=== PATIENT | female | born 1950 | race Caucasian/White ===

== ENCOUNTER 2017-05-31 14:58 | Emergency (ER) | payer MEDICARE, MEDICAID ==
[~2017-05-31] VITALS: Ht 144.8 cm; Wt 75.8 kg
[~2017-05-31 14:58] MED LIST: ACYC800T99 PO; ASPI81TA94 PO; AZI250 PO; BLOO-1511 MC; CHOL200074 PO; CIP500 GT; CYCL10TA29 PO; GLIP5POW MC; GLY5 PO; HCTZ25 PO; HYDR-3250 GT; HYDR-385 PO; HYDR-4309 PO; IBU800 PO; LOR10/500 PO; LOR5 PO; LOR5/325 PO; METF-410 PO; METR-159 PO; METR250 GT; NITR-105 PO; NO MEDS; ONDA4TAB PO; SULF-198 PO; blood pressure med
[2017-05-31 15:05] VITALS: BP 204/99
--- NOTE | 2017-05-31 15:10 | ER Report ---
History and Physical Time Seen By MD: 15:07 HPI/ROS CHIEF COMPLAINT: Back pain HISTORY OF PRESENT ILLNESS: This is a 66-year-old female who presents to the emergency department with left back pain. Patient states that this has been an reoccurring pain for roughly 2-3 months, has been seen in the emergency departments after a fall was told it was from her fall however that pain is still persistent. The patient states the last several days the area has begun to burn, feels like it's on fire, in a very localized area to the back, at the T7-T8 dermatome line, her clothing irritates the area. Patient denies any other symptoms no nausea, vomiting, diarrhea, aches, chills or visual changes. Patient states that she did notice there were one or 2 little blisters that are present now. No oozing or crusting. REVIEW OF SYSTEMS: Constitutional: No fever, no chills. Eyes: No discharge. ENT: No sore throat. Cardiovascular: No chest pain, no palpitations. Respiratory: No cough, no shortness of breath. Gastrointestinal: No abdominal pain, no vomiting. Genitourinary: No hematuria. Musculoskeletal: As above. Skin: As above. Neurological: No headache. Allergies: Coded Allergies: No Known Drug Allergies (Verified , 09/24/16) Home Meds Active Scripts Acyclovir (ACYCLOVIR) 800 Mg Tablet, 800 MG PO 5XD for 7 Days, #35 TAB take with food Prov:DAVIE MOREJON MEDIA PLANNER-BC 05/31/17 Blood Sugar Diagnostic (GLUCOSE TEST STRIP) 1 Each Strip, 1 EACH MC BID for Diabetes for 50 Days, #100 STRIP 6 Refills Prov:MARÍA MARION MD 10/06/16 Cholecalciferol (Vitamin D3) (VITAMIN D-3) 2,000 Unit Capsule, 1 CAP PO DAILY, # 100 CAPSULE 3 Refills Prov:MARÍA MARION MD 07/29/16 Aspirin (ASPIRIN) 81 Mg Tab.chew, 81 MG PO QDAY, #90 TAB.CHEW 3 Refills Prov:MARÍA MARION MD 07/29/16 Glyburide (GLYBURIDE) 5 Mg Tab, 5 MG PO QDAY for 90 Days, TAB 3 Refills Prov:MARÍA MARION MD 07/29/16 Past Medical/Surgical History Patient has a past medical and surgical history of type II diabetes. Reviewed Nurses Notes: Yes Hx Smoking: No Smoking Status: Never Smoker Exposure to Second Hand Smoke?: No Hx Substance Use Disorder: No Hx Alcohol Use: Yes Constitutional Vital Sign - Last 24 Hours 05/31/17 15:05 Temp 98.7 Pulse 85 Resp 20 B/P (MAP) 204/99 Pulse Ox 96 O2 Delivery Room Air Physical Exam General Appearance: The patient is alert, has no immediate need for airway protection and no signs of toxicity. Eyes: Pupils equal and round no pallor or injection. ENT, Mouth: Mucous membranes are moist. Respiratory: There are no retractions, lungs are clear to auscultation. Cardiovascular: Regular rate and rhythm, no murmurs, clicks or rubs. Gastrointestinal: Abdomen is soft and non tender, no masses, bowel sounds normal. Neurological: Alert and oriented 4. Moving all extremities. Following all commands. No focal neuro deficits. Skin: Warm and dry, no rashes. 2 small blister appearing spots along the posterior T7-T8 dermatome line. No discharge. Painful with light touch. Musculoskeletal: Neck is supple non tender. Extremities are nontender, nonswollen and have full range of motion. DIFFERENTIAL DIAGNOSIS: After history and physical exam differential diagnosis was considered for contusion, shingles, viral rash, chronic back pain. Medical Decision Making ED Course/Re-evaluation ED Course The patient was admitted to room. History and physical were obtained. Differential diagnoses were considered. Upon evaluation of the patient and upon discussing the symptoms with the patient and no injury go ahead and treat the patient's for shingles. The patient is in agreement with this. A prescription for acyclovir was sent to the patient's pharmacy the patient was also encouraged to establish a primary care provider here in town and follow-up in 7- 14 days. Patient was also encouraged to return to the ED for worsening symptoms. The patient had no other questions or concerns and was discharged home. Decision to Disposition Date: May 31, 2017 Decision to Disposition Time: 15:30 Depart Departure Latest Vital Signs Vital Signs Date Time Temp Pulse Resp B/P (MAP) Pulse Ox O2 Delivery O2 Flow Rate FiO2 05/31/17 15:05 98.7 85 20 204/99 96 Room Air Impression: Primary Impression: Shingles Condition: Improved Disposition: HOME OR SELF-CARE Referrals: JONE SALAZAR MD (PCP) New Scripts Acyclovir (ACYCLOVIR) 800 Mg Tablet 800 MG PO 5XD for 7 Days, #35 TAB take with food Prov: DAVIE MOREJON 05/31/17 Patient Instructions: Shingles (ED) Additional Instructions: Drink plenty of water. Get plenty of rest. Take the medication as indicated, with food, 5 times a day for 5 days. Please establish with a provider here in town for follow up within 7-14 days. May return to the ED for worsening symptoms. MD Consult Note: CATI Hall Problem Qualifiers Primary Impression: Shingles Herpes zoster complications: without complications Qualified Codes: B02.9 - Zoster without complications DAVIE MOREJON May 31, 2017 15:10
[2017-05-31] MEDS ORDERED: ACYC800T99 PO (15:35)
== END 2017-05-31 15:43 | disposition home or self-care (01) ==
LOC: ER 15:05
DX: B02.9 Zoster without complications (principal)
CPT/HCPCS: 99282

== ENCOUNTER 2017-06-08 19:51 | Emergency (ER) | payer MEDICARE, MEDICAID ==
[~2017-06-08] VITALS: Ht 144.8 cm; Wt 75.8 kg
[~2017-06-08 19:51] MED LIST changes: +LIDO700A19 TOP; +PRED20TA6 PO
[2017-06-08] MEDS ORDERED: [UNRECOGNIZED DRUG - CODE] TP (20:06)
--- NOTE | 2017-06-08 20:11 | ER Report ---
History and Physical Time Seen By MD: 20:15 Hx. of Stated Complaint: pt dx with shingles last week in ER, given capzasin cream by primary provider yesterday, rubbed it on first time tonight, burning and itching back after application, L side redness and irritation HPI/ROS CHIEF COMPLAINT: Reaction to topical capsaicin cream HISTORY OF PRESENT ILLNESS: Patient is a 66-year-old female who was diagnosed with herpes zoster roughly 1 week ago. Patient was started on acyclovir the vesicular rash has improved although she was still having some neurologic discomfort to the affected area. She was prescribed capsaicin cream to apply topically. After this was applied patient developed redness to the area along with some irritation and burning. No respiratory symptoms were noted. REVIEW OF SYSTEMS: Respiratory: No cough, no dyspnea. Cardiovascular: No chest pain, no palpitations. Gastrointestinal: No vomiting, no abdominal pain. Musculoskeletal: No back pain. Allergies: Coded Allergies: No Known Drug Allergies (Verified , 09/24/16) Home Meds Active Scripts Prednisone (PREDNISONE) 20 Mg Tablet, 1 TAB PO BID for 5 Days, #10 TAB 0 Refills Prov:SABAS RIOS DNP, DAMAGE ASSESSOR-BC 06/07/17 Blood Sugar Diagnostic (GLUCOSE TEST STRIP) 1 Each Strip, 1 EACH MC BID for Diabetes for 50 Days, #100 STRIP 6 Refills Prov:MARÍA MARION MD 10/06/16 Cholecalciferol (Vitamin D3) (VITAMIN D-3) 2,000 Unit Capsule, 1 CAP PO DAILY, # 100 CAPSULE 3 Refills Prov:MARÍA MARION MD 07/29/16 Aspirin (ASPIRIN) 81 Mg Tab.chew, 81 MG PO QDAY, #90 TAB.CHEW 3 Refills Prov:MARÍA MARION MD 07/29/16 Glyburide (GLYBURIDE) 5 Mg Tab, 5 MG PO QDAY for 90 Days, TAB 3 Refills Prov:MARÍA MARION MD 07/29/16 Reported Medications Capsaicin/Menthol (CAPZASIN QUICK RELIEF GEL) 42.5 Gm Gel.w.appl, 42.5 GM TP 06/08/17 Discontinued Scripts Lidocaine (Lidocaine) 5 % Adh..patch, 1 PATCH TOP DAILY for 30 Days, #30 PATCH 0 Refills May apply 1/2-1 patch for up to 12h/day. Cover most painful areas. May cut to size. Prov:SABAS RIOS Anthony DNP, DAMAGE ASSESSOR-BC 06/07/17 Acyclovir (ACYCLOVIR) 800 Mg Tablet, 800 MG PO 5XD for 7 Days, #35 TAB take with food Prov:DAVIE MOREJON DAMAGE ASSESSOR-BC 05/31/17 Hx Smoking: No Smoking Status: Never Smoker Exposure to Second Hand Smoke?: No Hx Substance Use Disorder: No Hx Alcohol Use: Yes Constitutional Vital Sign - Last 24 Hours 06/08/17 19:59 Temp 98.1 Pulse 75 Resp 18 B/P (MAP) 203/122 Pulse Ox 96 O2 Delivery Room Air Physical Exam General Appearance: The patient is alert, has no immediate need for airway protection and no current signs of toxicity. Respiratory: Chest is non tender, lungs are clear to auscultation. Cardiac: regular rate and rhythm Gastrointestinal: Abdomen is soft and non tender, no masses, bowel sounds normal. Musculoskeletal: Neck: Neck is supple and non tender. Extremities have full range of motion and are non tender. Skin: Patient with rash to the left lower flank. No vesicular lesions. Medical Decision Making ED Course/Re-evaluation ED Course 06/08/2017 8:17:33 pm Plan at this time will be to try topical steroids. We'll have patient discontinue the capsacin cream 06/08/2017 8:56:59 pm Rash irritation and redness have improved after application of Kenalog cream. Patient will be discharged with tubes she received in the emergency department she was given instructions on how to use this medication over the next week. Decision to Disposition Date: Jun 08, 2017 Decision to Disposition Time: 20:36 Depart Departure Latest Vital Signs Vital Signs Date Time Temp Pulse Resp B/P (MAP) Pulse Ox O2 Delivery O2 Flow Rate FiO2 06/08/17 19:59 98.1 75 18 203/122 96 Room Air Impression: Primary Impression: Adverse drug effect Condition: Improved Disposition: HOME OR SELF-CARE Referrals: JONE SALAZAR MD (PCP) 2 Days for recheck of rash Patient Instructions: Adverse Drug Reaction (ED) Additional Instructions: Discontinue use of the capsacin topical cream Continue your other prescribed medications as directed Use the Kenalog topical steroid cream given to you in the emergency department twice per day for the next 7 days to the affected area as needed for rash or irritation Problem Qualifiers Primary Impression: Adverse drug effect Encounter type: initial encounter Qualified Codes: T88.7XXA - Unspecified adverse effect of drug or medicament, initial encounter FREDERICK GARCIA MD Jun 08, 2017 20:11
[2017-06-08] MEDS ORDERED: TRIAMCINOLONE ACE 0.1% CR 15GM TP ONE (20:20)
[2017-06-08 21:07] VITALS: BP 174/96
== END 2017-06-08 21:11 | disposition home or self-care (01) ==
LOC: ER 20:03
DX: T88.7XXA Unspecified adverse effect of drug or medicament, initial encounter (principal)
CPT/HCPCS: 99281; A9270

== ENCOUNTER 2017-08-23 18:45 | Emergency (ER) | payer MEDICARE, MEDICAID ==
[~2017-08-23 18:45] MED LIST changes: +[UNRECOGNIZED DRUG - CODE] TP
--- NOTE | 2017-08-23 18:54 | ER Report ---
History and Physical Time Seen By MD: 18:53 HPI/ROS CHIEF COMPLAINT: Fall, right knee pain, left ankle pain HISTORY OF PRESENT ILLNESS: 67-year-old female, type II diabetic with chronic back pain secondary to postherpetic neuralgia. She fell 4 days ago in the grocery store. She describes a twisting motion to her right knee. She went down on her right knee. She states she is unable to bend her knee more than 30 . She notes that she's been having throbbing pain, which is been keeping her awake at night. She has tried Aleve earlier today with some improvement of her pain. Patient also notes some mild pain in her left ankle. She states she has chronic problems with her left ankle. She also notes a twisting motion of her back causing more pain. Patient denies head impact, neck pain, chest pain, shortness of breath. REVIEW OF SYSTEMS: Respiratory: No cough, no dyspnea. Cardiovascular: No chest pain, no palpitations. Gastrointestinal: No vomiting, no abdominal pain. Musculoskeletal: As above Allergies: Coded Allergies: No Known Drug Allergies (Verified , 08/23/17) Home Meds Active Scripts Methocarbamol (ROBAXIN) 500 Mg Tablet, 1-2 TAB PO TID Y for muscle spasm relief , #15 Prov:IVETTE KELLER Deidre DO 08/23/17 Tramadol Hcl (TRAMADOL HCL) 50 Mg Tablet, 1 TAB PO Q6H Y for PAIN, #15 MG TAKE ONE TO TWO TABLETS BY MOUTH EVERY FOUR TO SIX HOURS NEEDED Prov:IVETTE KELLER Deidre DO 08/23/17 Glyburide (GLYBURIDE) 5 Mg Tab, 1 TAB PO QDAY, #90 TAB 1 Refill Prov:SABAS RIOS DNP, FNP-JOSE M 08/04/17 Blood Sugar Diagnostic (GLUCOSE TEST STRIP) 1 Each Strip, 1 EACH MC BID for Diabetes, #100 STRIP 6 Refills Patient tests twice daily Prov:SABAS RIOS DNP, FNP-BC 06/22/17 Cholecalciferol (Vitamin D3) (VITAMIN D-3) 2,000 Unit Capsule, 1 CAP PO DAILY, # 100 CAPSULE 3 Refills Prov:MARÍA MARION MD 07/29/16 Aspirin (ASPIRIN) 81 Mg Tab.chew, 81 MG PO QDAY, #90 TAB.CHEW 3 Refills Prov:MARÍA MARION MD 07/29/16 Reported Medications Capsaicin/Menthol (CAPZASIN QUICK RELIEF GEL) 42.5 Gm Gel.w.appl, 42.5 GM TP 06/08/17 Discontinued Scripts Prednisone (PREDNISONE) 20 Mg Tablet, 1 TAB PO BID for 5 Days, #10 TAB 0 Refills Prov:SABAS RIOS DNP, CLUSTER BORE OPERATOR-BC 06/07/17 Past Medical/Surgical History Type II diabetic on oral agents, postherpetic neuralgia Hx Smoking: No Smoking Status: Never Smoker Exposure to Second Hand Smoke?: No Hx Substance Use Disorder: No Hx Alcohol Use: Yes Constitutional Vital Sign - Last 24 Hours 08/23/17 18:56 Temp 98.3 Pulse 89 Resp 18 B/P (MAP) 183/77 Pulse Ox 100 O2 Delivery Room Air Physical Exam General Appearance: The patient is alert, has no immediate need for airway protection and no current signs of toxicity. Mild distress HEENT: Pupils equal and round no injection. Oropharynx without redness or exudate, mucous members are moist Respiratory: Chest is non tender, lungs are clear to auscultation. No chest wall tenderness Cardiac: regular rate and rhythm Gastrointestinal: Abdomen is soft and non tender, no masses, bowel sounds normal. Musculoskeletal: Neck: Neck is supple and non tender. No tenderness in the midline Extremities have full range of motion and are non tender. There is old appearing bruising over the right knee. As a joint effusion noted. Ligaments appear intact with stressing. Patient's unable to tolerate Khadijah's maneuver. The right lower foot is neurovascularly intact. The left ankle shows chronic deformity. The left foot is neurovascularly intact. There is tenderness on palpation of the ankle Skin: No rashes or lesions. DIFFERENTIAL DIAGNOSIS: After history and physical exam differential diagnosis was considered for fall in the elderly including but not limited to intracranial injury, long bone and pelvic bone fracture, spinal injury, sprain, strain, fracture, dislocation, contusion and intrathoracic injury. Medical Decision Making EKG/Imaging Imaging X-ray: Right knee, 3 views was obtained. I viewed the images myself on the PACS system. My interpretation of the images is: No fracture no dislocation or malalignment, degenerative joint disease noted. The radiologist interpretation had no clinically significant variation from this interpretation. X-ray: Left ankle, 3 views was obtained. I viewed the images myself on the PACS system. My interpretation of the images is: No fracture no dislocation or malalignment, chronic degenerative changes. The radiologist interpretation had no clinically significant variation from this interpretation. ED Course/Re-evaluation ED Course Patient was minute to an examination room. H&P was done. The differential diagnosis was considered. On clinical examination. Patient has right knee pain and swelling consistent with sprain and contusion. There is no laxity ligaments. Patient's unable to bend her knee. She may have some form of internal derangement. Diagnostic x-rays are performed which are unremarkable. Patient's advised to conservative treatment plan. She is advised to wear neoprene splint brace support her knee. She is advised Aleve 2 tablets twice daily. Patient's having some low back pain. She'll be started on Robaxin for muscle relaxant effect. She's given tramadol for temporary pain relief. She is advised to follow-up with her primary care if unimproved in 3-5 days for referral for physical therapy, further diagnostic imaging and referral to orthopedics if indicated. Decision to Disposition Date: Aug 23, 2017 Decision to Disposition Time: 20:04 Depart Departure Latest Vital Signs Vital Signs Date Time Temp Pulse Resp B/P (MAP) Pulse Ox O2 Delivery O2 Flow Rate FiO2 08/23/17 18:56 98.3 89 18 183/77 100 Room Air Impression: Primary Impression: Right knee sprain Additional Impressions: Left ankle sprain Low back pain Condition: Improved Disposition: HOME OR SELF-CARE Referrals: JONE SALAZAR MD (PCP) New Scripts Methocarbamol (ROBAXIN) 500 Mg Tablet 1-2 TAB PO TID Y for muscle spasm relief, #15 Prov: IVETTE KELLER DO 08/23/17 Tramadol Hcl (TRAMADOL HCL) 50 Mg Tablet 1 TAB PO Q6H Y for PAIN, #15 MG TAKE ONE TO TWO TABLETS BY MOUTH EVERY FOUR TO SIX HOURS NEEDED Prov: IVETTE KELLER DO 08/23/17 Patient Instructions: Knee Sprain (ED), Low Back Strain (ED) Additional Instructions: Take Aleve 2 tablets twice daily with food Apply heating pad to the affected areas to help with recovery Follow-up with your primary care if unimproved in 3-5 days Problem Qualifiers Primary Impression: Right knee sprain Encounter type: initial encounter Involved ligament of knee: unspecified ligament Qualified Codes: S83.91XA - Sprain of unspecified site of right knee , initial encounter Additional Impressions: Left ankle sprain Encounter type: initial encounter Involved ligament of ankle: unspecified ligament Qualified Codes: S93.402A - Sprain of unspecified ligament of left ankle, initial encounter Low back pain Chronicity: acute Back pain laterality: right Sciatica presence: without sciatica Qualified Codes: M54.5 - Low back pain IVETTE KELLER DO Aug 23, 2017 18:54
[2017-08-23 18:56] VITALS: BP 183/77
[2017-08-23] MEDS ORDERED: METH-542 PO (20:09)
[2017-08-23] MEDS ORDERED: TRAM-420 PO (20:09)
--- NOTE | 2017-08-23 20:14 | RADIOLOGY IMAGING REPORT ---
FAC[place] [facility] [place]IENT NAME: Maryellen Meyers : 1950 MR: [id number] V: [id number] EXAM DATE: ORDERING PHYSICIAN: IVETTE KELLER TECHNOLOGIST: Location: [facility] Patient: Maryellen Meyers : 1950 Visit/Account:[id number] Date of Sevice: 08/23/2017 EXAMINATION: Right knee 3 views HISTORY: Fall. COMPARISON: None. FINDINGS: Bones of the right knee demonstrate normal alignment. No evidence of acute fracture or dislocation. Mild tricompartmental degenerative changes. There is mild joint space narrowing in the medial and lat eral compartments with marginal osteophyte formation. Soft tissues are radiographically unremarkable. No significant knee joint effusion is visualized. IMPRESSION: 1. No acute osseous findings at the right knee. 2. Mild chronic tricompartmental degenerative changes Report Dictated By: Figueroa Santana MD at 08/23/2017 8:07 PM Report E-Signed By: Figueroa Santana MD at 08/23/2017 8:09 PM WSN:[id number]
--- NOTE | 2017-08-23 20:15 | RADIOLOGY IMAGING REPORT ---
[facility] PATIENT NAME: Maryellen Meyers : 1950 MR: [id number] V: [id number] EXAM DATE: ORDERING PHYSICIAN: IVETTE KELLER TECHNOLOGIST: Location: [facility] - [place] Patient: Maryellen Meyers : 1950 Visit/Account:[id number] Date of Sevice: 08/23/2017 EXAMINATION: Left ankle 3 views HISTORY: Fall. COMPARISON: 09/29/2016. FINDINGS: No evidence of acute fracture or dislocation at the left ankle. The medial and lateral malleoli appea r intact. Joint space is preserved along the ankle mortise. Stable advanced chronic degenerative changes in the visualized left hindfoot. There is complete loss of the plantar arch with chronic degenerative changes of the talonavicular joint and along the subtal ar joints. Small plantar calcaneal spur. Soft tissue swelling surrounds the left ankle. IMPRESSION: 1. No acute osseous findings about the left ankle. 2. Stable chronic degenerative changes. Report Dictated By: Figueroa Santana MD at 08/23/2017 8:10 PM Report E-Signed By: Figueroa Santana MD at 08/23/2017 8:12 PM WSN:[id number]
== END 2017-08-23 20:29 | disposition home or self-care (01) ==
LOC: ER 19:04
DX: S83.91XA Sprain of unspecified site of right knee, initial encounter (principal); S93.402A Sprain of unspecified ligament of left ankle, initial encounter; M54.5 Low back pain; W18.30XA Fall on same level, unspecified, initial encounter; Y92.512 Supermarket, store or market as the place of occurrence of the external cause
CPT/HCPCS: 99282

== ENCOUNTER → 2017-09-18 | Outpatient (CLI) | payer MEDICARE, MEDICAID ==
[~2017-09-18] MED LIST changes: +LISI-362 PO; +METH-542 PO; +NAPR500T31 PO; +TRAM-420 PO
--- NOTE | 2017-09-18 10:34 | RADIOLOGY IMAGING REPORT ---
FACILITY: [facility] [place] PATIENT NAME: Maryellen Meyers : 1950 MR: [id number] V: [id number] EXAM DATE: ORDERING PHYSICIAN: SABAS RIOS TECHNOLOGIST: Location: [facility] - [place] Patient: Maryellen Meyers : 1950 Visit/Account:[id number] Date of Sevice: 09/18/2017 Exam type: LUMBAR SPINE 4 VIEWS History: Acute bilateral low back pain, pain down right leg Comparison: February 14, 2017. Findings: There is a minimal levoconvex scoliosis lumbar spine. There is no evidence of acute fractures or sub luxations. Again noted is the minimal anterior listhesis of L4 with respect L3 and L5. There Is mod erate disc space narrowing at L5 S1 T12 L1, L1 L2 and the visualized portion the lower thoracic spine . Moderate degenerative facet joint changes are seen at L4-5 and L5-S1 IMPRESSION: 1. Multilevel spondylotic changes lumbar spine appear similar to the prior study. If patient's symp toms persist MR is recommended Report Dictated By: Komal Fernandes MD at 09/18/2017 10:28 AM Report E-Signed By: Komal Fernandes MD at 09/18/2017 10:31 AM WSN:[email or web address]
== END ==
LOC: RAD 09:42
PROVIDERS: ATTEND Nurse Practitioner Primary Care
DX: M47.896 Other spondylosis, lumbar region (principal)
CPT/HCPCS: 72120

== ENCOUNTER → 2017-11-20 | Outpatient (CLI) | payer MEDICARE, MEDICAID ==
[~2017-11-20] MED LIST changes: -METF-410 PO; +METF-411 PO
[2017-11-20 07:42] LABS: LDL CHOLESTEROL 66 mg/dl
== END ==
LOC: LAB 07:16
PROVIDERS: ATTEND Nurse Practitioner Primary Care
DX: E11.9 Type 2 diabetes mellitus without complications (principal)
CPT/HCPCS: 36415; 82040; 82247; 82310; 82374; 82435; 82465; 82565; 82947; 83036; 83718; 84075; 84132; 84155; 84295; 84450; 84460; 84478; 84520

== ENCOUNTER 2018-03-07 07:42 | Emergency (ER) | payer MEDICARE, MEDICAID ==
[~2018-03-07 07:42] MED LIST changes: -METF-411 PO; +METF-450 PO
[2018-03-07] MEDS ORDERED: ONDANSETRON 4 MG/2 ML VIAL IVP ONE (07:55)
[2018-03-07] MEDS ORDERED: DIAZEPAM 50 MG/10 ML MDV IVP ONE (07:55)
--- NOTE | 2018-03-07 07:58 | ER Report ---
History and Physical Time Seen By MD: 07:52 Hx. of Stated Complaint: PATIENT REPORTS NAUSEA AND DIZZINESS THAT STARTED AROUND 0300 THIS MORNING.SHE DENIES VOMITING AND DIARRHEA. HPI/ROS CHIEF COMPLAINT: Dizziness nausea HISTORY OF PRESENT ILLNESS: 67-year-old female history of skc-vbtnrvl-wyecvweis diabetes comes emergency Department today with 1 day approximately 8-12 hours of positional vertigo with dizziness associated says when she sits up too fast lays down to fast she notes the room is spinning and she feels dizzy and nauseated has not actually vomited I has some mild suprapubic tenderness but no abdominal pain per se no chest pain shortness of breath patient has had vertigo in the past. Describes symptoms being very similar patient has no additional complaints at this time symptoms are fully reproducible REVIEW OF SYSTEMS: Respiratory: No cough, no dyspnea. Cardiovascular: No chest pain, no palpitations. Gastrointestinal: Nausea without vomiting Musculoskeletal: No back pain. Remainder of the 14 system rev: Yes Allergies: Coded Allergies: No Known Drug Allergies (Verified , 08/23/17) Home Meds Active Scripts Glyburide (GLYBURIDE) 5 Mg Tab, 1 TAB PO QDAY, #30 TAB 0 Refills Prov:[facility]OS DNP, [facility] 03/06/18 Lisinopril (LISINOPRIL) 10 Mg Tablet, 1 TAB PO QDAY, #30 TAB 0 Refills Prov:SABAS RIOS DNP [facility] 03/06/18 Cholecalciferol (Vitamin D3) (VITAMIN D-3) 2,000 Unit Capsule, 1 CAP PO DAILY, #90 CAPSULE 3 Refills Prov:SABAS RIOS DNP [facility] 11/22/17 Blood Sugar Diagnostic (GLUCOSE TEST STRIP) 1 Each Strip, 1 EACH MC BID for Hannah betes, #100 STRIP 6 Refills Patient tests twice daily Prov:SABAS RIOS DNP [facility] SPIRITUAL CARE COORDINATORAnnamarie 06/22/17 Aspirin (ASPIRIN) 81 Mg Tab.chew, 81 MG PO QDAY, #90 TAB.CHEW 3 Refills Prov:MARÍA MARION MD 07/29/16 Reviewed Nurses Notes: Yes Old Medical Records Reviewed: Yes Hx Smoking: No Smoking Status: Never Smoker Exposure to Second Hand Smoke?: No Hx Substance Use Disorder: No Hx Alcohol Use: Yes Constitutional Vital Sign - Last 24 Hours 03/07/18 07:45 Temp 97.5 Pulse 87 Resp 20 B/P (MAP) 202/93 Pulse Ox 95 O2 Delivery Room Air Physical Exam General Appearance: The patient is alert, has no immediate need for airway protection and no current signs of toxicity. Appears dizzy Eyes: Pupils equal and round no injection. Respiratory: Chest is non tender, lungs are clear to auscultation. Cardiac: regular rate and rhythm [ ] Gastrointestinal: Abdomen is soft and non tender, no masses, bowel sounds normal. Musculoskeletal: Neck: Neck is supple and non tender. Extremities have full range of motion and are non tender. Skin: No rashes or lesions. Neurological examination reproducible vertiginous symptoms without nystagmus DIFFERENTIAL DIAGNOSIS: After history and physical exam differential diagnosis was considered for cardiac ischemia cardiac abnormality positional vertigo Medical Decision Making Data Points Result Diagram: 03/07/18 0807 03/07/18 0807 Laboratory Hematology Test 03/07/18 07:54 03/07/18 08:07 Urine Color Yellow Urine Clarity Clear Urine pH 5.0 pH (4.8-9.5) Urine Specific [place] 1.019 Urine Protein Negative mg/dL (NEGATIVE) Urine Glucose (UA) Negative mg/dL (NEGATIVE) Urine Ketones Negative mg/dL (NEGATIVE) Urine Blood Negative (NEGATIVE) Urine Nitrite Negative (NEGATIVE) Urine Bilirubin Negative (NEGATIVE) Urine Urobilinogen Negative mg/dL (0.2-1.9) Urine Leukocyte Esterase Trace (NEGATIVE) Urine RBC 1 /HPF (0-2/HPF) Urine WBC 3 /HPF (0-5/HPF) Urine Squamous Epithelial Cells Many /LPF (</=FEW) Urine Bacteria Negative /HPF (NONE-FEW) Urine Mucus Few /HPF (NONE-FEW) Red Blood Count 4.58 M/uL (4.17-5.56) Mean Corpuscular Volume 92.2 fL (80.0-96.0) Mean Corpuscular Hemoglobin 30.9 pg (26.0-33.0) Mean Corpuscular Hemoglobin Concent 33.5 g/dL (32.0-36.0) Red Cell Distribution Width 13.3 % (11.5-14.5) Mean Platelet Volume fL (7.2-11.1) Neutrophils (%) (Auto) 68.5 % (39.4-72.5) Lymphocytes (%) (Auto) 22.3 % (17.6-49.6) Monocytes (%) (Auto) 5.6 % (4.1-12.4) Eosinophils (%) (Auto) 2.5 % (0.4-6.7) Basophils (%) (Auto) 1.1 % (0.3-1.4) Nucleated RBC Relative Count (auto) 0.0 /100WBC Neutrophils # (Auto) 3.8 K/uL (2.0-7.4) Lymphocytes # (Auto) 1.2 K/uL (1.3-3.6) Monocytes # (Auto) 0.3 K/uL (0.3-1.0) Eosinophils # (Auto) 0.1 K/uL (0.0-0.5) Basophils # (Auto) 0.1 K/uL (0.0-0.1) Nucleated RBC Absolute Count (auto) 0.00 K/uL Peripheral Blood Smear Yes Y/N Sodium Level 140 mmol/L (137-145) Potassium Level 3.7 mmol/L (3.5-5.0) Chloride Level 106 mmol/L (98-107) Carbon Dioxide Level 24 mmol/L (22-31) Blood Urea Nitrogen 21 mg/dl (7-18) Creatinine 0.60 mg/dl (0.52-1.04) Glomerular Filtration Rate Calc > 60.0 Random Glucose 136 mg/dl (75-110) Calcium Level 9.1 mg/dl (8.4-10.2) Total Bilirubin 1.1 mg/dl (0.2-1.3) Aspartate Amino Transf (AST/SGOT) 21 U/L (0-35) Alanine Aminotransferase (ALT/SGPT) 33 U/L (0-56) Alkaline Phosphatase 59 U/L (0-126) Troponin I < 0.012 ng/ml Total Protein 7.2 g/dl (6.3-8.2) Albumin 4.0 g/dl (3.5-5.0) Chemistry Test 03/07/18 07:54 03/07/18 08:07 Urine Color Yellow Urine Clarity Clear Urine pH 5.0 pH (4.8-9.5) Urine Specific [place] 1.019 Urine Protein Negative mg/dL (NEGATIVE) Urine Glucose (UA) Negative mg/dL (NEGATIVE) Urine Ketones Negative mg/dL (NEGATIVE) Urine Blood Negative (NEGATIVE) Urine Nitrite Negative (NEGATIVE) Urine Bilirubin Negative (NEGATIVE) Urine Urobilinogen Negative mg/dL (0.2-1.9) Urine Leukocyte Esterase Trace (NEGATIVE) Urine RBC 1 /HPF (0-2/HPF) Urine WBC 3 /HPF (0-5/HPF) Urine Squamous Epithelial Cells Many /LPF (</=FEW) Urine Bacteria Negative /HPF (NONE-FEW) Urine Mucus Few /HPF (NONE-FEW) White Blood Count 5.5 k/uL (4.5-11.0) Red Blood Count 4.58 M/uL (4.17-5.56) Hemoglobin 14.1 g/dL (12.0-16.0) Hematocrit 42.2 % (34.0-47.0) Mean Corpuscular Volume 92.2 fL (80.0-96.0) Mean Corpuscular Hemoglobin 30.9 pg (26.0-33.0) Mean Corpuscular Hemoglobin Concent 33.5 g/dL (32.0-36.0) Red Cell Distribution Width 13.3 % (11.5-14.5) Platelet Count 117 K/uL (150-450) Mean Platelet Volume fL (7.2-11.1) Neutrophils (%) (Auto) 68.5 % (39.4-72.5) Lymphocytes (%) (Auto) 22.3 % (17.6-49.6) Monocytes (%) (Auto) 5.6 % (4.1-12.4) Eosinophils (%) (Auto) 2.5 % (0.4-6.7) Basophils (%) (Auto) 1.1 % (0.3-1.4) Nucleated RBC Relative Count (auto) 0.0 /100WBC Neutrophils # (Auto) 3.8 K/uL (2.0-7.4) Lymphocytes # (Auto) 1.2 K/uL (1.3-3.6) Monocytes # (Auto) 0.3 K/uL (0.3-1.0) Eosinophils # (Auto) 0.1 K/uL (0.0-0.5) Basophils # (Auto) 0.1 K/uL (0.0-0.1) Nucleated RBC Absolute Count (auto) 0.00 K/uL Peripheral Blood Smear Yes Y/N Glomerular Filtration Rate Calc > 60.0 Calcium Level 9.1 mg/dl (8.4-10.2) Total Bilirubin 1.1 mg/dl (0.2-1.3) Aspartate Amino Transf (AST/SGOT) 21 U/L (0-35) Alanine Aminotransferase (ALT/SGPT) 33 U/L (0-56) Alkaline Phosphatase 59 U/L (0-126) Troponin I < 0.012 ng/ml Total Protein 7.2 g/dl (6.3-8.2) Albumin 4.0 g/dl (3.5-5.0) Urinalysis Test 03/07/18 07:54 Urine Color Yellow Urine Clarity Clear Urine pH 5.0 pH (4.8-9.5) Urine Specific [place] 1.019 Urine Protein Negative mg/dL (NEGATIVE) Urine Glucose (UA) Negative mg/dL (NEGATIVE) Urine Ketones Negative mg/dL (NEGATIVE) Urine Blood Negative (NEGATIVE) Urine Nitrite Negative (NEGATIVE) Urine Bilirubin Negative (NEGATIVE) Urine Urobilinogen Negative mg/dL (0.2-1.9) Urine Leukocyte Esterase Trace (NEGATIVE) Urine RBC 1 /HPF (0-2/HPF) Urine WBC 3 /HPF (0-5/HPF) Urine Squamous Epithelial Cells Many /LPF (</=FEW) Urine Bacteria Negative /HPF (NONE-FEW) Urine Mucus Few /HPF (NONE-FEW) ED Course/Re-evaluation ED Course Course 67 female who presents with vertiginous symptoms fully reproducible felt better after getting IV Valium rest of her enzymes cardiac markers and EKG were all within normal limits patient be discharged with by mouth Antivert and follow-up with primary care Decision to Disposition Date: Mar 07, 2018 Decision to Disposition Time: 09:18 Depart Departure Latest Vital Signs Vital Signs Date Time Temp Pulse Resp B/P (MAP) Pulse Ox O2 Delivery O2 Flow Rate FiO2 03/07/18 07:45 97.5 87 20 202/93 95 Room Air Impression: Primary Impression: Vertigo Condition: Improved Disposition: HOME OR SELF-CARE Referrals: SABAS RIOS DNP, HOSPICE SPIRITUAL CARE COORDINATOR-BC (PCP) 5 Days New Scripts Diazepam (VALIUM) 5 Mg Tablet 5 MG PO 2-3XD, #15 TAB Prov: COLT ROSSI MD 03/07/18 Patient Instructions: Benign Paroxysmal Positional Vertigo (DC) COLT ROSSI MD Mar 07, 2018 07:58
--- NOTE | 2018-03-07 07:58 | EKG ---
FACILITY: PATIENT NAME: RITESH MCCORMICK : [id number] MR: [id number] V: [id number] EXAM DATE: ORDERING PHYSICIAN: COLT ROSSI TECHNOLOGIST: BREANNA Donahue Reason : DIZZY Blood Pressure : / mmHG Vent. Rate : 080 BPM Atrial Rate : 080 BPM P-R Int : 158 ms QRS Dur : 082 ms QT Int : 384 ms P-R-T Axes : 055 -01 031 degrees QTc Int : 442 ms Sinus rhythm Left axis Unusual R wave progression through anterior leads Abnormal ECG Similar to previous EKG Confirmed by BRIDGETT RIZZO ([id number]) on 03/07/2018 3:49:47 PM Referred By: ENID Confirmed By:BRIDGETT RIZZO
[2018-03-07 08:23] LABS: PLATELET COUNT, AUTOMATED 117 K/uL (150-450)
--- NOTE | 2018-03-07 08:49 | RADIOLOGY IMAGING REPORT ---
FACILITY: [facility] PATIENT NAME: Maryellen Meyers : 1950 MR: [id number] V: [id number] EXAM DATE: ORDERING PHYSICIAN: COLT ROSSI TECHNOLOGIST: [place] [facility] [place] Mey[place] : 1950 Visit/Account:[id number] Date of Sevice: 03/07/2018 CHEST PA AND LAT COMPARISON: 04/28/2015 HISTORY: Chest pain, dizziness and nausea FINDINGS: CARDIAC/VASC: No cardiac silhouette abnormality or cardiomegaly. Unremarkable pulmonary vasculatu re. MEDIASTINUM: No visible mass or adenopathy. LUNGS/PLEURA: No pneumothorax. No significant pulmonary parenchymal abnormalities. No effusion or p leural thickening. BONES: No fracture or visible bony lesion. Mild thoracic spine degenerative changes. Probable sub acromial spur on the right. OTHER:Negative. IMPRESSION: No acute cardiopulmonary process. Report Dictated By: Marcos Bridges at 03/07/2018 8:45 AM Report E-Signed By: Marcos Bridges at 03/07/2018 8:46 AM WSN:[id number]
[2018-03-07 09:00] VITALS: BP 150/69
[2018-03-07] MEDS ORDERED: DIA5 PO (09:17)
== END 2018-03-07 09:27 | disposition home or self-care (01) ==
LOC: ER 08:05
DX: R42 Dizziness and giddiness (principal); E11.9 Type 2 diabetes mellitus without complications
CPT/HCPCS: 71046; 81001; 84484; 85025; 93005; 96374; 96375; 99284; J2405; J3360; 82040; 82247; 82310; 82374; 82435; 82565; 82947; 84075; 84132; 84155; 84295; 84450; 84460; 84520

== ENCOUNTER 2018-04-04 14:43 | Emergency (ER) | payer MEDICARE, MEDICAID ==
[~2018-04-04 14:43] MED LIST changes: +DIA5 PO; -HYDR-4309 PO; +HYDR-653 PO
--- NOTE | 2018-04-04 14:59 | ER Report ---
History and Physical Time Seen By MD: 14:59 HPI/ROS CHIEF COMPLAINT: Fall, headache, neck tenderness HISTORY OF PRESENT ILLNESS: Patient is a 67-year-old female here with complaints of headache, neck pain status post fall on the sidewalk at approximately 1245. Patient had questionable loss of consciousness and reports laying on the ground for approximately 10-15 minutes. Denies taking anticoagulation. Denies focal neurological deficits. She did take Aleve prior to arrival with some relief in pain. REVIEW OF SYSTEMS: Constitutional: No fever, no chills. Eyes: No discharge. ENT: No sore throat. Cardiovascular: No chest pain, no palpitations. Respiratory: No cough, no shortness of breath. Gastrointestinal: No abdominal pain, no vomiting. Genitourinary: No hematuria. Musculoskeletal: + midline c-spine tenderness Skin: No rashes. Neurological: + frontal headache. Allergies: Coded Allergies: No Known Drug Allergies (Verified , 08/23/17) Home Meds Active Scripts Glyburide (GLYBURIDE) 5 Mg Tab, 1 TAB PO QDAY, #30 TAB 0 Refills Prov:SABAS RIOS DNP, [facility]- 03/06/18 Lisinopril (LISINOPRIL) 10 Mg Tablet, 1 TAB PO QDAY, #30 TAB 0 Refills Prov:SABAS RIOS DNP [facility]- 03/06/18 Cholecalciferol (Vitamin D3) (VITAMIN D-3) 2,000 Unit Capsule, 1 CAP PO DAILY, #90 CAPSULE 3 Refills Prov:SABAS RIOS DNP [facility]- 11/22/17 Blood Sugar Diagnostic (GLUCOSE TEST STRIP) 1 Each Strip, 1 EACH MC BID for Diabetes, #100 STRIP 6 Refills Patient tests twice daily Prov:SABAS RIOS DNP, [facility]- 06/22/17 Aspirin (ASPIRIN) 81 Mg Tab.chew, 81 MG PO QDAY, #90 TAB.CHEW 3 Refills Prov:MARÍA MARION MD 07/29/16 Discontinued Scripts Diazepam (VALIUM) 5 Mg Tablet, 5 MG PO 2-3XD, #15 TAB Prov:COLT ROSSI MD 03/07/18 Hx Smoking: No Smoking Status: Never Smoker Exposure to Second Hand Smoke?: No Hx Substance Use Disorder: No Hx Alcohol Use: Yes Constitutional Vital Sign - Last 24 Hours 04/04/18 14:59 Temp 98.3 Pulse 72 Resp 16 B/P (MAP) 196/81 Pulse Ox 95 O2 Delivery Room Air Physical Exam General Appearance: The patient is alert, has no immediate need for airway protection and no signs of toxicity. NAD Eyes: Pupils equal and round no pallor or injection. ENT, Mouth: Mucous membranes are moist, + C-collar in place Respiratory: There are no retractions, lungs are clear to auscultation. Cardiovascular: Regular rate and rhythm. Gastrointestinal: Abdomen is soft and non tender, no masses, bowel sounds normal. Neurological: No focal neuro deficits Skin: Warm and dry, no rashes. Musculoskeletal: Neck is supple with + c-spine midline soreness Extremities are nontender, nonswollen and have full range of motion. DIFFERENTIAL DIAGNOSIS: After history and physical exam differential diagnosis was considered for concussion, intracranial bleed, fracture, contusion Medical Decision Making EKG/Imaging Imaging EXAMINATION: CT Cervical spine without intravenous contrast HISTORY: Fall. Headache. COMPARISON: None. TECHNIQUE: Axial images were obtained from the skull base through the upper thoracic spine without IV contrast administration. Coronal and sagittal r eformatted images were obtained from the axial source data. One of the following dose optimization techniques was utilized in the performance of this exam: Automated exposure control; adjustment of the mA and/or kV according to the patient's size; or use of an iterative reconstruction technique. Specific details can be referenced in the facility's radiology CT exam operational policy. FINDINGS: Alignment: Straightening of the cervical spine. Cranio-cervical junction: Negative. Vertebral bodies: No evidence of acute fracture. Posterior elements: Mild facet degenerative changes. No acute fracture. Hardware: None. Disc Spaces: Multilevel disc degenerative changes with disc space narrowing and endplate osteophytes. Soft tissues: Negative. Visualized upper chest: Negative. IMPRESSION: No acute fracture of the cervical spine. Multilevel disc degenerative changes in the cervical spine. EXAMINATION: Head CT without intravenous contrast HISTORY: Fall. Headache. COMPARISON: None. TECHNIQUE: Contiguous axial images were obtained from the skull base to the vertex without intravenous contrast. Sagittal and coronal reformatted images are also submitted. One of the following dose optimization techniques was utilized in the performance of this exam: Automated exposure control; adjustment of the mA and/or kV according to the patient's size; or use of an iterative reconstruction technique. Specific details can be referenced in the facility's radiology CT exam operational policy. FINDINGS: Brain and intracranial structures: Ventricles, sulci, and cisterns are normal in size. Torres-white matter differentiation is maintained. No midline shift, acute hemorrhage, acute infarct, or mass. Vessels: Mild calcification of the carotid siphons and intracranial left vertebral artery. Calvarium / scalp: Negative. No acute fracture. Skull base / visualized face: Slight rightward bowing of the nasal septum. Visualized sinuses / orbits: Mild mucosal thickening in the left maxillary sinus. IMPRESSION: No acute intracranial abnormality. ED Course/Re-evaluation ED Course Patient is a 67-year-old female here with complaints of headache, C-spine tenderness status post fall on concrete with unknown loss of consciousness. Patient denies anticoagulation. She did take Aleve prior to arrival with some relief of pain. Denies focal neurological deficits or weakness. CT imaging of the head and C-spine showed no acute fractures or intracranial bleeding. Patient was advised to adhere to concussion precautions and follow-up with her PCP in the next several days. Patient was well-appearing at time of discharge and advised to take naproxen or ibuprofen as needed and to hydrate aggressively for symptom management. Decision to Disposition Date: Apr 04, 2018 Decision to Disposition Time: 15:50 Depart Departure Latest Vital Signs Vital Signs Date Time Temp Pulse Resp B/P (MAP) Pulse Ox O2 Delivery O2 Flow Rate FiO2 04/04/18 14:59 98.3 72 16 196/81 95 Room Air Impression: Primary Impression: Concussion Condition: Improved Disposition: HOME OR SELF-CARE Referrals: SABAS RIOS DNP, [facility] (PCP) Patient Instructions: Concussion (ED) Additional Instructions: Please drink plenty of water. You may take ibuprofen or naproxen as needed for headaches. CT imaging of your head and neck showed no acute fractures or bleeding. Please review the attached concussion precautions as these may improve your symptoms. Please avoid recurrent trauma to the head as your symptoms may significantly worsen. Please follow-up with your family doctor in the next 2 days. KALLI BUCKLEY DO Apr 04, 2018 14:59
--- NOTE | 2018-04-04 15:43 | RADIOLOGY IMAGING REPORT ---
FACILITY: [facility] PATIENT NAME: Marylelen Meyers : 1950 MR: [id number] V: [id number] EXAM DATE: ORDERING PHYSICIAN: KALLI BUCKLEY TECHNOLOGIST: [place] [facility] [place] Maryellen Meyers : 1950 Visit/Account:[id number] Date of Sevice: 04/04/2018 EXAMINATION: Head CT without intravenous contrast HISTORY: Fall. Headache. COMPARISON: None. TECHNIQUE: Contiguous axial images were obtained from the skull base to the vertex without intraven ous contrast. Sagittal and coronal reformatted images are also submitted. One of the following dose optimization techniques was utilized in the performance of this exam: Autom ated exposure control; adjustment of the mA and/or kV according to the patient's size; or use of an i terative reconstruction technique. Specific details can be referenced in the facility's radiology C T exam operational policy. FINDINGS: Brain and intracranial structures: Ventricles, sulci, and cisterns are normal in size. Torres-white m atter differentiation is maintained. No midline shift, acute hemorrhage, acute infarct, or mass. Vessels: Mild calcification of the carotid siphons and intracranial left vertebral artery. Calvarium / scalp: Negative. No acute fracture. Skull base / visualized face: Slight rightward bowing of the nasal septum. Visualized sinuses / orbits: Mild mucosal thickening in the left maxillary sinus. IMPRESSION: No acute intracranial abnormality. Report Dictated By: Jose Cardenas MD at 04/04/2018 3:28 PM Report E-Signed By: Jose Cardenas MD at 04/04/2018 3:38 PM WSN:[email or web address]
--- NOTE | 2018-04-04 15:47 | RADIOLOGY IMAGING REPORT ---
FACILITY: [facility] [place] PATIENT NAME: Maryellen Meyers : 1950 MR: [id number] V: [id number] EXAM DATE: ORDERING PHYSICIAN: KALLI BUCKLEY TECHNOLOGIST: Location: [facility] Patient: Maryellen Meyers : 1950 Visit/Account:[id number] Date of Sevice: 04/04/2018 EXAMINATION: CT Cervical spine without intravenous contrast HISTORY: Fall. Headache. COMPARISON: None. TECHNIQUE: Axial images were obtained from the skull base through the upper thoracic spine without I V contrast administration. Coronal and sagittal reformatted images were obtained from the axial [facility] e data. One of the following dose optimization techniques was utilized in the performance of this exam: Autom ated exposure control; adjustment of the mA and/or kV according to the patient's size; or use of an i terative reconstruction technique. Specific details can be referenced in the facility's radiology C T exam operational policy. FINDINGS: Alignment: Straightening of the cervical spine. Cranio-cervical junction: Negative. Vertebral bodies: No evidence of acute fracture. Posterior elements: Mild facet degenerative changes. No acute fracture. Hardware: None. Disc Spaces: Multilevel disc degenerative changes with disc space narrowing and endplate osteophytes. Soft tissues: Negative. Visualized upper chest: Negative. IMPRESSION: No acute fracture of the cervical spine. Multilevel disc degenerative changes in the cervical spine. Report Dictated By: Jose Cardenas MD at 04/04/2018 3:38 PM Report E-Signed By: Jose Cardenas MD at 04/04/2018 3:43 PM WSN:[email or web address]
== END 2018-04-04 16:06 | disposition home or self-care (01) ==
LOC: ER 15:01
DX: S06.0X0A Concussion without loss of consciousness, initial encounter (principal); W18.30XA Fall on same level, unspecified, initial encounter
CPT/HCPCS: 70450; 72125; 99284; L0172

== ENCOUNTER 2018-04-18 19:22 | Emergency (ER) | payer MEDICARE, MEDICAID ==
[~2018-04-18 19:22] MED LIST changes: +FLU180SY11 IM; +LISI20TA29 PO; -METR-159 PO; +METR250T8 PO
--- NOTE | 2018-04-18 19:35 | ER Report ---
History and Physical Time Seen By MD: 19:36 Hx. of Stated Complaint: pt started feeling dizzy a couple of hour ago. HPI/ROS CHIEF COMPLAINT: Headache, dizziness, elevated blood pressure HISTORY OF PRESENT ILLNESS: This is a 67-year-old female. She was having some dizziness while at [facility]. Something dropped on the floor and she bent over to pick it up and got very dizzy. She describes this as a combination of vertigo and off balance. It also causes nausea. She is had this mildly the last few days but this was much more severe. She does have a history of vertigo in the past which went away. Also had a history of concussion recently but those symptoms had all resolved. She noted her blood pressure has been running high. Recent evaluation by her primary care provider, and they increased her lisinopril for ongoing elevated blood pressure. She notes blood pressure is still elevated and was very high tonight. She does have a mild headache but denies any vision changes including blurred vision or diplopia. No ringing in the ears or tinnitus. She denies any pain in her neck or chest. No shortness of breath. She denies any weakness or numbness although does have some chronic numbness in her hands but this is unchanged. She has had a little bit of a cough, but no sore throat or runny nose. Allergies: Coded Allergies: metformin (Verified Adverse Reaction, Intermediate, NAUSEA/VOMITING, 04/09/18) Home Meds Active Scripts Amlodipine Besylate (AMLODIPINE BESYLATE) 5 Mg Tablet, 1 TAB PO QDAY, #30 TAB 0 Refills Prov:ARUN POOLE MD 04/18/18 Ondansetron (ONDANSETRON ODT) 4 Mg Tab.rapdis, 4 MG PO Q6H PRN for NAUSEA/VOMITING, #20 TAB 0 Refills Prov:ARUN POOLE MD 04/18/18 Meclizine Hcl (MECLIZINE HCL) 12.5 Mg Tablet, 12.5 MG PO Q8H PRN for DIZZINESS, #10 TAB 0 Refills Prov:ARUN POOLE MD 04/18/18 Cholecalciferol (Vitamin D3) (VITAMIN D-3) 2,000 Unit Capsule, 1 CAP PO DAILY, #90 CAPSULE 3 Refills Prov:ALMA SOTO APRN SAMPLE PREPARATION SUPERVISOR-C 04/09/18 Lisinopril (LISINOPRIL) 20 Mg Tablet, 1 TAB PO QDAY, #90 TAB 0 Refills Prov:ALMA SOTO KEITH AZEVEDO 04/09/18 Glyburide (GLYBURIDE) 5 Mg Tab, 1 TAB PO QDAY, #90 TAB 0 Refills Prov:ALMA SOTO KEITH AZEVEDO 04/09/18 Blood Sugar Diagnostic (GLUCOSE TEST STRIP) 1 Each Strip, 1 EACH MC BID for Diabetes, #200 STRIP 6 Refills Patient tests twice daily Prov:ALMA SOTO KEITH AZEVEDO 04/09/18 Discontinued Scripts Aspirin (ASPIRIN) 81 Mg Tab.chew, 81 MG PO QDAY, #90 TAB.CHEW 3 Refills Prov:MARÍA MARION MD 07/29/16 Reviewed Nurses Notes: Yes Hx Smoking: No Smoking Status: Never Smoker Exposure to Second Hand Smoke?: No Hx Substance Use Disorder: No Hx Alcohol Use: Yes (rare) Constitutional Vital Sign - Last 24 Hours 04/18/18 04/18/18 04/18/18 04/18/18 19:29 19:30 19:35 19:40 Temp 98.3 Pulse 70 ??? Resp 18 B/P (MAP) 214/91 214/91 (132) 203/96 (131) 192/90 (124) Pulse Ox 96 O2 Delivery Room Air 04/18/18 04/18/18 04/18/18 04/18/18 20:00 20:40 21:00 21:20 Pulse 67 67 B/P (MAP) 191/95 (127) 167/86 (113) 198/95 (129) 180/80 (113) Pulse Ox 95 93 04/18/18 04/18/18 04/18/18 04/18/18 21:25 21:40 21:55 22:00 Pulse ? B/P (MAP) 151/94 (113) 152/71 (98) 04/18/18 22:10 Pulse ??? Physical Exam General Appearance: The patient is alert. No acute distress. Non-toxic in appearance. Eyes: Pupils are equal, round. Reactive to light. No pallor, injection or icterus. Extraocular movements are intact. Has mild right sided nystagmus, horizontal. Negative impulse testing. Negative cover/uncover. ENT: Mucous membranes are moist. Normal oral mucosa. Posterior oropharynx is normal. Neck: Supple and non tender. Neck with some small shotty lymphadenopathy on the right. Respiratory: Lungs are clear to auscultation. Cardiovascular: Regular rate and rhythm. No murmurs, gallops or rubs. Normal capillary refill. Gastrointestinal: Abdomen is soft and non tender. Nondistended. Normal active bowel sounds. Neurological: Alert and oriented x3. No weakness or neurologic changes. Cranial nerve exam was negative. Negative HiNTs testing. [place]-Hallpike with some reproduction and nystagmus to the right. Skin: Warm and dry. No rashes. Musculoskeletal: Extremities are nontender. No tenderness in palpation of the cervical, thoracic and lumbar spine. DIFFERENTIAL DIAGNOSIS: After history and physical exam, differential diagnosis was considered for combination of dizziness which considered both central and peripheral, HiNTs rules out central. [place]-Hallpike mild positive, likely viral on the right based on physical and localizing signs. Blood pressure elevated, so will need to look at this as possible cause as well. Medical Decision Making Data Points Result Diagram: 04/18/18204104/18/182041 Laboratory Hematology Test 04/18/18 19:26 04/18/18 20:42 Urine Color Yellow Urine Clarity Clear Urine pH 6.0 pH (4.8-9.5) Urine Specific [place] 1.015 Urine Protein Negative mg/dL (NEGATIVE) Urine Glucose (UA) Negative mg/dL (NEGATIVE) Urine Ketones Trace mg/dL (NEGATIVE) Urine Blood Negative (NEGATIVE) Urine Nitrite Negative (NEGATIVE) Urine Bilirubin Negative (NEGATIVE) Urine Urobilinogen Negative mg/dL (0.2-1.9) Urine Leukocyte Esterase Negative (NEGATIVE) Urine RBC <1 /HPF (0-2/HPF) Urine WBC 1 /HPF (0-5/HPF) Urine Squamous Epithelial Cells Few /LPF (</=FEW) Urine Bacteria Negative /HPF (NONE-FEW) Urine Mucus None /HPF (NONE-FEW) Red Blood Count 4.66 M/uL (4.17-5.56) Mean Corpuscular Volume 90.2 fL (80.0-96.0) Mean Corpuscular Hemoglobin 30.5 pg (26.0-33.0) Mean Corpuscular Hemoglobin Concent 33.8 g/dL (32.0-36.0) Red Cell Distribution Width 13.1 % (11.5-14.5) Mean Platelet Volume 10.6 fL (7.2-11.1) Neutrophils (%) (Auto) 55.8 % (39.4-72.5) Lymphocytes (%) (Auto) 36.1 % (17.6-49.6) Monocytes (%) (Auto) 3.7 % (4.1-12.4) Eosinophils (%) (Auto) 3.0 % (0.4-6.7) Basophils (%) (Auto) 1.4 % (0.3-1.4) Nucleated RBC Relative Count (auto) 0.0 /100WBC Neutrophils # (Auto) 3.3 K/uL (2.0-7.4) Lymphocytes # (Auto) 2.1 K/uL (1.3-3.6) Monocytes # (Auto) 0.2 K/uL (0.3-1.0) Eosinophils # (Auto) 0.2 K/uL (0.0-0.5) Basophils # (Auto) 0.1 K/uL (0.0-0.1) Nucleated RBC Absolute Count (auto) 0.00 K/uL Sodium Level 140 mmol/L (137-145) Potassium Level 3.5 mmol/L (3.5-5.0) Chloride Level 106 mmol/L (98-107) Carbon Dioxide Level 22 mmol/L (22-31) Blood Urea Nitrogen 19 mg/dl (7-18) Creatinine 0.50 mg/dl (0.52-1.04) Glomerular Filtration Rate Calc > 60.0 Random Glucose 91 mg/dl (75-110) Calcium Level 9.4 mg/dl (8.4-10.2) Total Bilirubin 0.7 mg/dl (0.2-1.3) Aspartate Amino Transf (AST/SGOT) 19 U/L (0-35) Alanine Aminotransferase (ALT/SGPT) 29 U/L (0-56) Alkaline Phosphatase 66 U/L (0-126) Troponin I < 0.012 ng/ml Total Protein 7.7 g/dl (6.3-8.2) Albumin 4.3 g/dl (3.5-5.0) Chemistry Test 04/18/18 19:26 04/18/18 20:42 Urine Color Yellow Urine Clarity Clear Urine pH 6.0 pH (4.8-9.5) Urine Specific [place] 1.015 Urine Protein Negative mg/dL (NEGATIVE) Urine Glucose (UA) Negative mg/dL (NEGATIVE) Urine Ketones Trace mg/dL (NEGATIVE) Urine Blood Negative (NEGATIVE) Urine Nitrite Negative (NEGATIVE) Urine Bilirubin Negative (NEGATIVE) Urine Urobilinogen Negative mg/dL (0.2-1.9) Urine Leukocyte Esterase Negative (NEGATIVE) Urine RBC <1 /HPF (0-2/HPF) Urine WBC 1 /HPF (0-5/HPF) Urine Squamous Epithelial Cells Few /LPF (</=FEW) Urine Bacteria Negative /HPF (NONE-FEW) Urine Mucus None /HPF (NONE-FEW) White Blood Count 5.9 k/uL (4.5-11.0) Red Blood Count 4.66 M/uL (4.17-5.56) Hemoglobin 14.2 g/dL (12.0-16.0) Hematocrit 42.0 % (34.0-47.0) Mean Corpuscular Volume 90.2 fL (80.0-96.0) Mean Corpuscular Hemoglobin 30.5 pg (26.0-33.0) Mean Corpuscular Hemoglobin Concent 33.8 g/dL (32.0-36.0) Red Cell Distribution Width 13.1 % (11.5-14.5) Platelet Count 162 K/uL (150-450) Mean Platelet Volume 10.6 fL (7.2-11.1) Neutrophils (%) (Auto) 55.8 % (39.4-72.5) Lymphocytes (%) (Auto) 36.1 % (17.6-49.6) Monocytes (%) (Auto) 3.7 % (4.1-12.4) Eosinophils (%) (Auto) 3.0 % (0.4-6.7) Basophils (%) (Auto) 1.4 % (0.3-1.4) Nucleated RBC Relative Count (auto) 0.0 /100WBC Neutrophils # (Auto) 3.3 K/uL (2.0-7.4) Lymphocytes # (Auto) 2.1 K/uL (1.3-3.6) Monocytes # (Auto) 0.2 K/uL (0.3-1.0) Eosinophils # (Auto) 0.2 K/uL (0.0-0.5) Basophils # (Auto) 0.1 K/uL (0.0-0.1) Nucleated RBC Absolute Count (auto) 0.00 K/uL Glomerular Filtration Rate Calc > 60.0 Calcium Level 9.4 mg/dl (8.4-10.2) Total Bilirubin 0.7 mg/dl (0.2-1.3) Aspartate Amino Transf (AST/SGOT) 19 U/L (0-35) Alanine Aminotransferase (ALT/SGPT) 29 U/L (0-56) Alkaline Phosphatase 66 U/L (0-126) Troponin I < 0.012 ng/ml Total Protein 7.7 g/dl (6.3-8.2) Albumin 4.3 g/dl (3.5-5.0) Urinalysis Test 04/18/18 19:26 Urine Color Yellow Urine Clarity Clear Urine pH 6.0 pH (4.8-9.5) Urine Specific [place] 1.015 Urine Protein Negative mg/dL (NEGATIVE) Urine Glucose (UA) Negative mg/dL (NEGATIVE) Urine Ketones Trace mg/dL (NEGATIVE) Urine Blood Negative (NEGATIVE) Urine Nitrite Negative (NEGATIVE) Urine Bilirubin Negative (NEGATIVE) Urine Urobilinogen Negative mg/dL (0.2-1.9) Urine Leukocyte Esterase Negative (NEGATIVE) Urine RBC <1 /HPF (0-2/HPF) Urine WBC 1 /HPF (0-5/HPF) Urine Squamous Epithelial Cells Few /LPF (</=FEW) Urine Bacteria Negative /HPF (NONE-FEW) Urine Mucus None /HPF (NONE-FEW) EKG/Imaging EKG Interpretation 12 lead EKG: Rhythm: normal sinus rhythm, rate 61 [place]: normal QRS: Left ventricular hypertrophy mild ST segments: normal Imaging CHEST SINGLE AP 04/18/2018 20:09 hours. HISTORY: Elevated blood pressure. Dizziness. Nausea. COMPARISON: 03/07/2018 and studies dating to 04/28/2015. TECHNIQUE: Portable AP view of the chest. FINDINGS: Tubes/lines/hardware: None. Pulmonary: Patient's chin projects over the lung apices. Lungs are clear. There is no pneumothorax or pleural effusion. Cardiomediastinal: Cardiac and mediastinal silhouettes are within normal limits. Bones/soft tissues: No acute osseous abnormality. There is degenerative change of the glenohumeral joints. There is mild degenerative change of the spine. The visible abdomen is normal. IMPRESSION: 1. No acute cardiopulmonary process. Report Dictated By: Chantelle Hamilton at 04/18/2018 9:[address] OF THE BRAIN WITHOUT CONTRAST HISTORY: Dizziness. Elevated blood pressure. PROCEDURE: 3.0 mm contiguous axial sections were performed through the brain. Sagittal and coronal reformats were submitted. COMPARISON: CT brain April 04, 2018 FINDINGS: BRAIN: Brain and intracranial structures: There is no mass lesion, hemorrhage or acute infarct. Orbits (included portions): Normal. Scalp: Normal. Skull: Normal. Paranasal sinuses and mastoid air cells (included portions): Normal. IMPRESSION: No evidence of acute intracranial abnormality. One of the following dose optimization techniques was utilized in the performance of this exam: Automated exposure control; adjustment of the mA and/or kV according to the patient's size; or use of an iterative reconstruction technique. Specific details can be referenced in the facility's radiology CT exam operational policy. Report Dictated By: Shaan Al MD at 04/18/2018 9:44 PM ED Course/Re-evaluation Clinical Indication for ER IV: IV Access ED Course Labs unremarkable. EKG and chest x-ray and CT scan of the head are negative. Did give amlodipine 5 mg oral dose prior to all this and blood pressure has come d own nicely although still elevated. Reviewed all the testing results with the patient. Recommended that the vertigo she is having appears to be likely an inflammatory or viral mediated labyrinthitis on the right. I do not see any evidence of central vertigo. We will give her meclizine and Zofran to use as needed. We are also starting her on amlodipine 5 mg once a day and she will follow-up with her regular doctor. Decision to Disposition Date: Apr 18, 2018 Decision to Disposition Time: 22:06 Depart Departure Latest Vital Signs Vital Signs Date Time Temp Pulse Resp B/P (MAP) Pulse Ox O2 Delivery O2 Flow Rate FiO2 04/18/18 22:10 ??? 04/18/18 22:00 152/71 (98) 04/18/18 21:00 93 04/18/18 19:29 98.3 18 Room Air Impression: Primary Impression: Peripheral vertigo involving right ear Additional Impression: Hypertension Condition: Improved Disposition: HOME OR SELF-CARE Referrals: SABAS RIOS DNP, SAMPLE PREPARATION SUPERVISOR-BC (PCP) New Scripts Amlodipine Besylate (AMLODIPINE BESYLATE) 5 Mg Tablet 1 TAB PO QDAY, #30 TAB 0 Refills Prov: ARUN POOLE MD 04/18/18 Ondansetron (ONDANSETRON ODT) 4 Mg Tab.rapdis 4 MG PO Q6H PRN for NAUSEA/VOMITING, #20 TAB 0 Refills Prov: ARUN POOLE MD 04/18/18 Meclizine Hcl (MECLIZINE HCL) 12.5 Mg Tablet 12.5 MG PO Q8H PRN for DIZZINESS, #10 TAB 0 Refills Prov: ARUN POOLE MD 04/18/18 Patient Instructions: Chronic Hypertension (ED), Vertigo (ED) Additional Instructions: Your blood pressure was a little elevated tonight. We are going to have you continue the Lisinopril prescribed by your primary care provider. We will add Amlodipine 5mg, and you will take this once a day in the morning. The Vertigo/dizziness appears to be a peripheral vertigo, likely from the inner ear and caused by a virus. This will take time to go away. If it continues, you may consider follow-up with your primary care provider or possibly with neurology. Take Meclizine 12.5mg every 8 hours as needed for dizziness. Take Zofran 4mg, one every 6 hours as needed for nausea. Problem Qualifiers Additional Impression: Hypertension Hypertension type: unspecified Qualified Codes: I10 - Essential (primary) hypertension ARUN POOLE MD Apr 18, 2018 19:35
[2018-04-18] MEDS ORDERED: amLODIPine BESYL(*) 5 MG TAB PO ONE (20:10)
[2018-04-18 20:47] LABS: PLATELET COUNT, AUTOMATED 162 K/uL (150-450)
--- NOTE | 2018-04-18 21:02 | EKG ---
FACILITY: [facility] PATIENT NAME: RITESH MCCORMICK : [id number] MR: [id number] V: [id number] EXAM DATE: ORDERING PHYSICIAN: ARUN POOLE TECHNOLOGIST: AYLEEN Test Reason : MARIA L. BP Blood Pressure : / mmHG Vent. Rate : 061 BPM Atrial Rate : 061 BPM P-R Int : 166 ms QRS Dur : 080 ms QT Int : 422 ms P-R-T Axes : 047 -17 -02 degrees QTc Int : 424 ms Normal sinus rhythm Possible Left atrial enlargement Left ventricular hypertrophy Abnormal ECG When compared with ECG of 07-MAR-2018 07:52, Previous ECG has undetermined rhythm, needs review Inverted T waves have replaced nonspecific T wave abnormality in Inferior leads Confirmed by TERRENCE CARR ([id number]) on 04/19/2018 6:31:07 AM Referred By: Confirmed By:TERRENCE CARR
--- NOTE | 2018-04-18 21:56 | RADIOLOGY IMAGING REPORT ---
FACILITY: [facility] [place] PATIENT NAME: Maryellen Meyers : 1950 MR: [id number] V: [id number] EXAM DATE: ORDERING PHYSICIAN: ARUN POOLE TECHNOLOGIST: Location: [facility] Patient: Maryellen Meyers : 1950 Visit/Account:[id number] Date of Sevice: 04/18/2018 CT OF THE BRAIN WITHOUT CONTRAST HISTORY: Dizziness. Elevated blood pressure. PROCEDURE: 3.0 mm contiguous axial sections were performed through the brain. Sagittal and coronal r eformats were submitted. COMPARISON: CT brain April 04, 2018 FINDINGS: BRAIN: Brain and intracranial structures: There is no mass lesion, hemorrhage or acute infarct. Orbits (included portions): Normal. Scalp: Normal. Skull: Normal. Paranasal sinuses and mastoid air cells (included portions): Normal. IMPRESSION: No evidence of acute intracranial abnormality. One of the following dose optimization techniques was utilized in the performance of this exam: Autom ated exposure control; adjustment of the mA and/or kV according to the patient's size; or use of an i terative reconstruction technique. Specific details can be referenced in the facility's radiology C T exam operational policy. Report Dictated By: Shaan Al MD at 04/18/2018 9:44 PM Report E-Signed By: Shaan Al MD at 04/18/2018 9:51 PM WSN:[id number]
--- NOTE | 2018-04-18 21:58 | RADIOLOGY IMAGING REPORT ---
FACILITY: [facility] PATIENT NAME: Maryellen Meyers : 1950 MR: [id number] V: [id number] EXAM DATE: ORDERING PHYSICIAN: ARUN POOLE TECHNOLOGIST: Location: [facility] [place] Patient: Maryellen Meyers : 1950 Visit/Account:[id number] Date of Sevice: 04/18/2018 CHEST SINGLE AP 04/18/2018 20:09 hours. HISTORY: Elevated blood pressure. Dizziness. Nausea. COMPARISON: 03/07/2018 and studies dating to 04/28/2015. TECHNIQUE: Portable AP view of the chest. FINDINGS: Tubes/lines/hardware: None. Pulmonary: Patient's chin projects over the lung apices. Lungs are clear. There is no pneumothorax or pleural effusion. Cardiomediastinal: Cardiac and mediastinal silhouettes are within normal limits. Bones/soft tissues: No acute osseous abnormality. There is degenerative change of the glenohumeral jcarlos ints. There is mild degenerative change of the spine. The visible abdomen is normal. IMPRESSION: 1. No acute cardiopulmonary process. Report Dictated By: Chantelle Hamilton at 04/18/2018 9:53 PM Report E-Signed By: Chantelle Hamilton at 04/18/2018 9:54 PM WSN:[id number]
[2018-04-18 22:00] VITALS: BP 152/71
[2018-04-18] MEDS ORDERED: MECLIZINE HCL 12.5 MG TAB PO ONE (22:00)
[2018-04-18] MEDS ORDERED: MECLIZINE HCL 12.5 MG TAB TH PO ONE (22:00)
[2018-04-18] MEDS ORDERED: ONDANSETRON 4 MG ODT TH SL ONE (22:00)
[2018-04-18] MEDS ORDERED: ONDANSETRON 4 MG ODT TABDP SL ONE (22:00)
[2018-04-18] MEDS ORDERED: AMLO-111 PO (22:10)
[2018-04-18] MEDS ORDERED: MECL12.5 PO (22:10)
[2018-04-18] MEDS ORDERED: ONDA4TAB9 PO (22:10)
== END 2018-04-18 22:20 | disposition home or self-care (01) ==
LOC: ER 19:48
DX: H81.391 Other peripheral vertigo, right ear (principal); I10 Essential (primary) hypertension
CPT/HCPCS: 36415; 70450; 71045; 81001; 84484; 85025; 93005; 99284; A9270; J8597; Q0162; 82040; 82247; 82310; 82374; 82435; 82565; 82947; 84075; 84132; 84155; 84295; 84450; 84460; 84520; S0119

== ENCOUNTER → 2018-10-10 | Outpatient (CLI) | payer MEDICARE, MEDICAID ==
[~2018-10-10] MED LIST changes: +AMLO-125 PO; +GLIM2TAB43 PO; +LISI-351 PO; +MECL12.5 PO; +ONDA4TAB9 PO
[2018-10-10 08:25] LABS: PLATELET COUNT, AUTOMATED 145 K/uL (150-450)
[2018-10-10 09:03] LABS: LDL CHOLESTEROL 63 mg/dl
== END ==
LOC: LAB 08:08
PROVIDERS: ATTEND Nurse Practitioner Family
DX: E11.9 Type 2 diabetes mellitus without complications (principal); I10 Essential (primary) hypertension
CPT/HCPCS: 36415; 82040; 82247; 82310; 82374; 82435; 82465; 82565; 82947; 83036; 83718; 84075; 84132; 84155; 84295; 84443; 84450; 84460; 84478; 84520; 85025